=== PATIENT | female | born 1985 | race American Indian/Alaskan Native ===

== ENCOUNTER 2019-04-05 08:01 | Inpatient (IN) | payer MEDICAID ==
--- NOTE | 2019-04-05 08:51 | History and Physical Report ---
History of Present Illness Date of examination: 04/05/19 Chief complaint: Labor History of present illness: Pt is a 33yo BF EDC 04/16/19; EGA 38 3/7 weeks presents to L&D complaining of SROM clear fluid @ 0500 followed by RUC's q 3-4 mins. She received care at [facility] since 16 weeks and course has been unremarkable. records are available and GBS is Positive. Past History Past Medical History: no pertinent history Past Surgical History: no surgical history [employer] History: herpes Family/Genetic History: hypertension Social history: no significant social history, single - Obstetrical History Expected Date of Delivery: 04/16/19 Actual Gestation: 38 Week(s) 3 Day(s) : 4 Medications and Allergies Allergies Allergy/AdvReac Type Severity Reaction Status Date / Time seafood Allergy Anaphylaxis Uncoded 02/10/14 12:51 Home Medications Medication Instructions Recorded Confirmed Last Taken Type Cyclobenzaprine [Flexeril 10mg] 10 mg PO TID PRN #14 tablet 07/20/14 08/03/16 Unknown Rx Ibuprofen [Motrin 800 MG tab] 800 mg PO Q8H #30 tablet 07/20/14 08/03/16 Unknown Rx Acetaminophen [Tylenol] 500 mg PO Q6HR #15 tablet 07/14/16 08/03/16 Unknown Rx Vits96/Iron Fum/Folic 1 tab PO DAILY 08/03/16 08/03/16 07/30/16 19:00 History [ Tablet] 1 tab Ibuprofen [Motrin 600 MG tab] 600 mg PO Q6HR #30 tablet 08/05/16 Unknown Rx Vit-Fe Fumar-FA [ 1 each PO QDAY #30 tablet 08/05/16 Unknown Rx Vitamin] Active Meds: Active Medications Ephedrine Sulfate (Ephedrine Sulfate) 10 mg IV Q2M PRN PRN Reason: Hypotension Oxytocin/Sodium Chloride (Pitocin/Ns 20 Unit/1000ml Drip) 20 units in 1,000 mls @ 125 mls/hr IV DIRECT LORELEI Oxytocin/Sodium Chloride (Pitocin/Ns 30 Unit/500ml) 30 units in 500 mls @ 1 mls/hr IV TITR LORELEI; Protocol Oxytocin/Sodium Chloride (Pitocin/Ns 30 Unit/500ml) 30 units in 500 mls @ 4 mls/hr IV TITR LORELEI; Protocol Lactated Ringer's (Lactated Ringers) 1,000 mls @ 125 mls/hr IV DIRECT LORELEI Lidocaine (Xylocaine 2%) 20 ml INFILTRATI ONCE ONE Stop: 04/05/19 08:48 Mineral Oil (Mineral Oil) 30 ml PO QHS PRN PRN Reason: Constipation Terbutaline Sulfate (Brethine) 0.25 mg SUB-Q ONCE PRN PRN Reason: Hyperstimulation/Hypertonicity Terbutaline Sulfate (Brethine) 0.25 mg IVP ONCE PRN PRN Reason: Hyperstimulation/Hypertonicity Review of Systems All systems: negative - Vital Signs Vital signs: Vital Signs Pulse Pulse Ox 89 96 04/05/19 08:17 04/05/19 08:17 Temp Pulse Resp BP Pulse Ox 100 H 112/67 97 04/05/19 08:32 04/05/19 08:18 04/05/19 08:32 - Physical Exam Breasts: Positive: deferred Cardiovascular: Regular rate Lungs: Positive: Clear to auscultation Abdomen: Positive: normal appearance Genitourinary (Female): Positive: normal external genitalia Vagina: Positive: normal moisture Uterus: Positive: enlarged Extremities: Positive: normal - Obstetrical FHR: category 1 Uterine Contraction Monitor Mode: External Cervical Dilatation: 2 (per nurse) Cervical Effacement Percentage: 50 (per nurse) station: -3 Uterine Contraction Pattern: Regular Uterine Tone Measurement Phase: Contraction Uterine Contraction Intensity: Moderate Results Result Diagrams: 04/05/19 09:08 All other labs normal. Assessment and Plan - Patient Problems (1) 38 weeks gestation of Onset Date: 04/05/19 Current Visit: Yes Status: Acute Plan to address problem: A: IUP @ 38 3/7 weeks in labor +GBS P: Admit to L&D for expectant vaginal delivery IV Ampicillin
[2019-04-05] MEDS ORDERED: PITOCin/NS 30 UNIT/500ML 30 UNITS/500 ML BAG IV SCH ×2 (09:00→09:30)
[2019-04-05] MEDS ORDERED: PITOCin/NS 20 UNIT/1000ML DRIP 20 UNITS/1,000 ML BAG IV SCH ×2 (09:00→19:00)
[2019-04-05] MEDS: LACTATED RINGERS 1,000 ML IV SCH ×2 (09:00→17:12)
[2019-04-05] MEDS ORDERED: BRETHINE SUB-Q PRN (09:30)
[2019-04-05] MEDS ORDERED: STADOL IV PRN (09:30)
[2019-04-05] MEDS ORDERED: ZOFRAN IV PRN ×2 (09:30→18:11)
[2019-04-05] MEDS ORDERED: MINERAL OIL PO PRN (09:30)
[2019-04-05] MEDS ORDERED: BRETHINE IVP PRN (09:30)
[2019-04-05] MEDS ORDERED: NARCAN 0.4 MG/1 ML IV PRN (09:30)
[2019-04-05] MEDS ORDERED: SUBLIMAZE IV PRN (09:30)
[2019-04-05] MEDS ORDERED: XYLOCAINE 2% INFILTRATI NR (09:30)
[2019-04-05 09:46] LABS: Hematocrit 36.2 % (30.3-42.9); Hemoglobin 12.1 gm/dl (10.1-14.3); Mean Corpuscular HGB Conc 34 % (30-34); Mean Corpuscular Volume 85 fl (79-97); Platelet Count 202 K/mm3 (140-440); Red Blood Count 4.27 M/mm3 (3.65-5.03); Red Cell Distribution Width 15.5 % (13.2-15.2)
[2019-04-05 09:50] LABS: Bilirubin,Urine NEG (Negative); Blood,Urine NEG (Negative); Color,Urine Yellow (Yellow); Mucus,Urine FEW /HPF; Protein,Urine <15 mg/dL mg/dL (Negative); Urobilinogen,Urine < 2.0 mg/dL (<2.0); WBC,Urine < 1.0 /HPF (0.0-6.0)
[2019-04-05] MEDS ORDERED: AMPICILLIN/NS 2 GM/100 ML 2 GM/100 ML BAG IV ONE (10:00)
[2019-04-05] MEDS: AMPICILLIN/NS 1 GM/50 ML 1 GM/50 ML BAG IV SCH ×2 (14:05→17:45)
[2019-04-05] MEDS ORDERED: NARCAN 2 MG/2 ML IV PRN (17:42)
--- NOTE | 2019-04-05 17:45 | Anesthesia Consultation ---
Anesthesia Consult and Med Hx Date of service: 04/05/19 - Airway Anesthetic Teeth Evaluation: Good ROM Head & Neck: Adequate Mental/Hyoid Distance: Adequate Mallampati Class: Class II Intubation Access Assessment: Probably Good - Pulmonary Exam CTA: Yes - Cardiac Exam Cardiac Exam: RRR - Pre-Operative Health Status ASA Pre-Surgery Classification: ASA2 Proposed Anesthetic Plan: Epidural - Pulmonary Hx Smoking: No Hx Asthma: Yes (LAST EPISODE IN 2014) Hx Respiratory Symptoms: No SOB: No COPD: No Home Oxygen Therapy: No Hx Pneumonia: No Hx Sleep Apnea: No - Cardiovascular System Hx Hypertension: No Hx Coronary Artery Disease: No Hx Heart Attack/AMI: No Hx Angina: No Hx Percutaneous Transluminal Coronary Angioplasty (PTCA): No Hx Cardia Arrhythmia: No Hx Pacemaker: No Hx Internal Defibrillator: No Hx Valvular Heart Disease: No Hx Heart Murmur: No Hx Peripheral Vascular Disease: No - Central Nervous System Hx Neuromuscular Disorder: No Hx Seizures: No CVA: No Hx Back Pain: No Hx Psychiatric Problems: No - Gastrointestinal Hx Ulcer: No Hx Gastroesophageal Reflux Disease: No - Endocrine Hx Renal Disease: No Hx End Stage Renal Disease: No Hx Cirrhosis: No Hx Liver Disease: No Hx Insulin Dependent Diabetes: No Hx Non-Insulin Dependent Diabetes: No Hx Thyroid Disease: No Hx Hypothyroidism: No Hx Hyperthyroidism: No - Hematic Hx Anemia: Yes Hx Sickle Cell Disease: No - Other Systems Hx Alcohol Use: No Hx Substance Use: No Hx Cancer: No Hx Obesity: Yes (BMI 36.3)
[2019-04-05] MEDS ORDERED: fentaNYL-BUPIV 2 MCG/ML-0.125% 200 MCG/100 ML BAG EPIDURAL SCH (18:00)
--- NOTE | 2019-04-05 18:07 | Procedure Note ---
OB Delivery Note - Delivery Date of Delivery: 04/05/19 Surgeon: KIMBERLY NEW Estimated blood loss: 100cc - Vaginal Delivery presentation: vertex Delivery position: OA Intrapartum events: none Delivery induction: none Delivery augmentation: rupture of membranes, pitocin Delivery monitor: external FHT, external uterine Route of delivery: Delivery placenta: spontaneous Delivery cord: nuchal cord (x1), 3 umbilical vessels Episiotomy: none Delivery laceration: 1st degree Delivery repair: vicryl Anesthesia: local Delivery comments: delivered OA and placed on Mom's chest for [id number] bonding and delayed cord clamping, cut by Dad - A at 1 minute: 8 at 5 minutes: 9 Infant Gender: Female (3348gms)
[2019-04-05] MEDS ORDERED: PHENERGAN PR PRN (18:11)
[2019-04-05] MEDS ORDERED: PHENERGAN PO PRN (18:11)
[2019-04-05] MEDS ORDERED: TUCKS PAD TP PRN (18:11)
[2019-04-05] MEDS ORDERED: DULCOLAX PR PRN (18:11)
[2019-04-05] MEDS ORDERED: MILK OF MAGNESIA PO PRN (18:11)
[2019-04-05] MEDS ORDERED: TYLENOL PO PRN (18:11)
[2019-04-05] MEDS ORDERED: NORCO 5/325 PO PRN (18:11)
[2019-04-05] MEDS ORDERED: LANSINOH TP PRN (18:11)
[2019-04-05] MEDS ORDERED: BENADRYL PO PRN (18:11)
[2019-04-05] MEDS ORDERED: SODIUM CHLORIDE FLUSH SYRINGE 10 ML IV NR (19:00)
[2019-04-05] MEDS: COLACE PO SCH (21:23)
[2019-04-05] MEDS: IBUPROFEN PO SCH (21:23)
[2019-04-05] MEDS: FEOSOL PO SCH (21:23)
[2019-04-06] MEDS ORDERED: DERMOPLAST TP PRN (06:00)
[2019-04-06 06:17] LABS: Hematocrit 34.6 % (30.3-42.9); Hemoglobin 11.5 gm/dl (10.1-14.3)
[2019-04-06] MEDS: IBUPROFEN PO SCH ×4 (07:00→22:06)
[2019-04-06] MEDS: FEOSOL PO SCH ×2 (09:19→22:06)
[2019-04-06] MEDS: COLACE PO SCH ×2 (09:19→22:06)
[2019-04-06] MEDS: PRENATAL VITAMIN PO SCH (09:19)
--- NOTE | 2019-04-06 10:36 | Progress Note ---
Assessment and Plan - Patient Problems (1) 38 weeks gestation of Onset Date: 04/05/19 Current Visit: Yes Status: Resolved (2) (normal spontaneous vaginal delivery) Onset Date: 04/06/19 Current Visit: Yes Status: Resolved Plan to address problem: A: S/P - PPD #1 Doing well P: May go home tomorrow. Subjective - Subjective Date of service: 04/06/19 Principal diagnosis: s/p - PPD #1 Interval history: Pt is feeling well without complaints. Bleeding improved. Patient reports: appetite normal, voiding normally, pain well controlled, flatus, ambulating normally, no dizzy ambulation, no nauseated : doing well, nursing well Objective - Vital Signs Latest vital signs: Vital Signs Temp Pulse Resp BP BP Pulse Ox 04/06/19 07:08 98.2 F 85 18 99/60 04/06/19 05:14 98.7 F 72 18 100/63 96 04/06/19 01:40 98.1 F 95 H 18 113/61 97 04/05/19 20:25 85 111/54 96 04/05/19 19:21 85 122/58 04/05/19 19:07 91 H 125/65 04/05/19 18:51 93 H 107/56 04/05/19 18:37 88 107/59 04/05/19 18:30 97.4 F L 18 04/05/19 18:14 99 H 123/51 04/05/19 18:00 97.4 F L 18 04/05/19 17:58 96 H 105/69 04/05/19 17:28 80 127/83 04/05/19 16:58 62 111/64 04/05/19 16:28 82 108/66 04/05/19 16:00 97.4 F L 18 04/05/19 15:59 93 H 113/62 04/05/19 15:30 68 118/78 04/05/19 14:58 77 112/67 04/05/19 14:27 88 114/67 04/05/19 14:00 98.0 F 18 04/05/19 13:28 71 102/64 04/05/19 12:00 98.0 F 18 Intake and Output 04/05/19 04/06/19 04/06/19 22:59 06:59 14:59 Intake Total 1000 600 480 Output Total 1600 700 Balance -600 -100 480 Intake: IV 1000 Lactated Ringers 1,000 ml 1000 @ 125 mls/hr IV DIRECT [facility] Rx#:[id number] Oral 480 Intake, Free Water 600 Output: Urine 1600 700 Void 1600 700 Other: Total, Intake Amount 480 Total, Output Amount 900 700 # Voids Void 2 Estimated Blood Loss 100 - Exam Breasts: Present: deferred Abdomen: Present: normal appearance, soft Uterus: Present: normal, firm, fundal height below umbilicus Extremities: Present: normal - Labs Labs: Laboratory Tests 04/05/19 04/05/19 04/05/19 09:08 09:08 09:08 WBC 10.2 RBC 4.27 Hgb 12.1 Hct 36.2 MCV 85 MCH 28 MCHC 34 RDW 15.5 H Plt Count 202 Urine Color Yellow Urine Turbidity Clear Urine pH 6.0 Ur Specific [place] 1.019 Urine Protein <15 mg/dl Urine Glucose (UA) Neg Urine Ketones Neg Urine Blood Neg Urine Nitrite Neg Urine Bilirubin Neg Urine Urobilinogen < 2.0 Ur Leukocyte Esterase Neg Urine WBC (Auto) < 1.0 Urine RBC (Auto) 2.0 U Epithel Cells (Auto) < 1.0 Urine Mucus Few RPR Nonreactive Hep Bs Antigen Blood Type Antibody Screen 04/05/19 04/05/19 04/06/19 09:08 Unknown 06:00 WBC RBC Hgb 11.5 Hct 34.6 MCV MCH MCHC RDW Plt Count Urine Color Urine Turbidity Urine pH Ur Specific [place] Urine Protein Urine Glucose (UA) Urine Ketones Urine Blood Urine Nitrite Urine Bilirubin Urine Urobilinogen Ur Leukocyte Esterase Urine WBC (Auto) Urine RBC (Auto) U Epithel Cells (Auto) Urine Mucus RPR Hep Bs Antigen Non-reactive Blood Type O POSITIVE Antibody Screen Negative
[2019-04-06] MEDS ORDERED: BOOSTRIX IM ONE (18:11)
[2019-04-06] MEDS ORDERED: M-M-R II VACCINE SUB-Q ONE (18:11)
[2019-04-07] MEDS: IBUPROFEN PO SCH ×2 (01:00→12:03)
--- NOTE | 2019-04-07 10:11 | Discharge Summary ---
Providers - Providers Date of Admission: 04/05/19 08:47 Date of discharge: 04/07/19 Attending physician: KIMBERLY NEW Primary care physician: KIMBERLY NEW Hospitalization Reason for admission: active labor, rupture of membranes, IUP at term Delivery: Episiotomy: none Laceration: 1st degree Other procedures: none complications: none Discharge diagnosis: IUP at term delivered baby: female Hospital course: Unremarkable. Condition at discharge: Good Disposition: DC-01 TO HOME OR SELFCARE - Discharge Diagnoses (1) 38 weeks gestation of Status: Resolved (2) (normal spontaneous vaginal delivery) Status: Resolved Plan - Discharge Medications Prescriptions: Ferrous Sulfate [Feosol 325 MG tab] 325 mg PO QDAY #30 tablet Ibuprofen [Motrin 600 MG tab] 600 mg PO Q6H #30 tablet Vit-Fe Fumar-FA [ Vitamin] 1 each PO QDAY #30 tablet - Provider Discharge Summary Activity: routine, no sex for 6 weeks, no heavy lifting 4 weeks, no strenuous exercise Diet: routine Instructions: routine Additional instructions: [] Smoking cessation referral if applicable(refer to patient education folder for contact #) [] Refer to [facility]'s [facility] Booklet Call your doctor immediately for: * Fever > 100.5 * Heavy vaginal bleeding ( >1 pad per hour) * Severe persistent headache * Shortness of breath * Reddened, hot, painful area to leg or breast * Drainage or odor from incision. * Keep incision clean and dry at all times and follow doctor's instructions regarding bathing/showering - Follow up plan Follow up: KIMBERLY NEW MD [Primary Care Provider] - 6 Weeks KENZIE REID CNM [Advanced Practice Nurse] - 6 Weeks
[2019-04-07] MEDS: FEOSOL PO SCH (12:03)
[2019-04-07] MEDS: PRENATAL VITAMIN PO SCH (12:03)
[2019-04-07 12:25] VITALS: BP 101/62
== END 2019-04-07 13:30 | disposition home or self-care (01) | DRG 775 ==
LOC: TRG 08:01 → LD 08:03 → TRG 09:57 → LD 09:57 → TRG 18:11 → OB 20:17
PROVIDERS: ADMIT Obstetrics & Gynecology; ATTEND Obstetrics & Gynecology
PROC: 10E0XZZ Delivery of Products of Conception, External Approach (ICD-10-PCS; principal; 2019-04-05)
PROC: 0HQ9XZZ Repair Perineum Skin, External Approach (ICD-10-PCS; 2019-04-05)
PROC: 3E0234Z Introduction of Serum, Toxoid and Vaccine into Muscle, Percutaneous Approach (ICD-10-PCS; 2019-04-06)
DX: O69.81X0 Labor and delivery complicated by cord around neck, without compression, not applicable or unspecified (principal); O99.52 Diseases of the respiratory system complicating childbirth; J45.909 Unspecified asthma, uncomplicated; O99.824 Streptococcus B carrier state complicating childbirth; O99.214 Obesity complicating childbirth; E66.9 Obesity, unspecified; O70.0 First degree perineal laceration during delivery; Z3A.38 38 weeks gestation of pregnancy; Z37.0 Single live birth; Z23 Encounter for immunization; Z82.49 Family history of ischemic heart disease and other diseases of the circulatory system; Z91.013 Allergy to seafood; Z79.899 Other long term (current) drug therapy
CPT/HCPCS: 36415; 81001; 85014; 85018; 85027; 86592; 86706; 86850; 86900; 86901; G0378; A6250; J0290; J0595; J2590; J7120

== ENCOUNTER 2019-07-13 03:12 | Emergency (ER) | payer MEDICAID ==
[2019-07-13 03:20] VITALS: BP 117/72
--- NOTE | 2019-07-13 05:20 | Emergency Department Report ---
ED ENT HPI - General Chief complaint: Earache Stated complaint: SORE THROATM, EAR ACHE Time Seen by Provider: 07/13/19 05:03 Source: patient Mode of arrival: Ambulatory Limitations: No Limitations - History of Present Illness Initial comments: This is a 33-year-old female presents to ED complaining of right ear pain and right-sided sore throat for the past 2 days. Patient states that the symptoms up until month ago but resolved and now returned yesterday. Patient also states that her 3-month-old and a 2-year-old daughters they intubate sick for the past couple of days. She denies fevers/chills/nausea vomiting or abdominal pain chest pain or shortness of breath. Patient states she's been taking Tylenol which has been worse give her some relief MD complaint: sore throat, ear pain Location: R ear, throat (right) Severity: moderate Severity scale (0 -10): 6 Quality: aching Consistency: intermittent Improves with: none Worsens with: none - Related Data Home Medications Medication Instructions Recorded Confirmed Last Taken valACYclovir [Valtrex] 500 mg PO DAILY 04/05/19 04/05/19 04/04/19 21:00 Previous Rx's Medication Instructions Recorded Last Taken Type Vit-Fe Fumar-FA [ 1 each PO QDAY #30 tablet 08/05/16 04/04/19 21:00 Rx Vitamin] Ferrous Sulfate [Feosol 325 MG tab] 325 mg PO QDAY #30 tablet 04/07/19 Unknown Rx Ibuprofen [Motrin 600 MG tab] 600 mg PO Q6H #30 tablet 04/07/19 Unknown Rx Vit-Fe Fumar-FA [ 1 each PO QDAY #30 tablet 04/07/19 Unknown Rx Vitamin] Amoxicillin/Potassium Clav 1 each PO BID #20 tablet 07/13/19 Unknown Rx [Augmentin 875-125 Tablet] Ibuprofen [Motrin] 800 mg PO Q8HR #20 tablet 07/13/19 Unknown Rx Pseudoephedrine ER [Sudafed 12 Hr] 120 mg PO BID #15 tablet.er 07/13/19 Unknown Rx Allergies Allergy/AdvReac Type Severity Reaction Status Date / Time seafood Allergy Anaphylaxis Uncoded 02/10/14 12:51 ED Dental HPI - General Chief complaint: Earache Stated complaint: SORE THROATM, EAR ACHE Time Seen by Provider: 07/13/19 05:03 Source: patient Mode of arrival: Ambulatory Limitations: No Limitations - Related Data Home Medications Medication Instructions Recorded Confirmed Last Taken valACYclovir [Valtrex] 500 mg PO DAILY 04/05/19 04/05/19 04/04/19 21:00 Previous Rx's Medication Instructions Recorded Last Taken Type Vit-Fe Fumar-FA [ 1 each PO QDAY #30 tablet 08/05/16 04/04/19 21:00 Rx Vitamin] Ferrous Sulfate [Feosol 325 MG tab] 325 mg PO QDAY #30 tablet 04/07/19 Unknown Rx Ibuprofen [Motrin 600 MG tab] 600 mg PO Q6H #30 tablet 04/07/19 Unknown Rx Vit-Fe Fumar-FA [ 1 each PO QDAY #30 tablet 04/07/19 Unknown Rx Vitamin] Amoxicillin/Potassium Clav 1 each PO BID #20 tablet 07/13/19 Unknown Rx [Augmentin 875-125 Tablet] Ibuprofen [Motrin] 800 mg PO Q8HR #20 tablet 07/13/19 Unknown Rx Pseudoephedrine ER [Sudafed 12 Hr] 120 mg PO BID #15 tablet.er 07/13/19 Unknown Rx Allergies Allergy/AdvReac Type Severity Reaction Status Date / Time seafood Allergy Anaphylaxis Uncoded 02/10/14 12:51 ED Review of Systems ROS: Stated complaint: SORE THROATM, EAR ACHE Other details as noted in HPI Comment: All other systems reviewed and negative ED Past Medical Hx - Past Medical History Previous Medical History?: Yes Hx Hypertension: No Hx Heart Attack/AMI: No Hx Congestive Heart Failure: No Hx Diabetes: No Hx Deep Vein Thrombosis: No Hx Liver Disease: No Hx Renal Disease: No Hx Sickle Cell Disease: No Hx Seizures: No Hx Asthma: Yes (LAST EPISODE IN 2014) Hx COPD: No Hx HIV: No - Surgical History Past Surgical History?: No Hx Pacemaker: No Hx Internal Defibrillator: No - Social History Smoking Status: Never Smoker Substance Use Type: None - Medications Home Medications: Home Medications Medication Instructions Recorded Confirmed Last Taken Type Vit-Fe Fumar-FA [ 1 each PO QDAY #30 tablet 08/05/16 04/05/19 04/04/19 21:00 Rx Vitamin] valACYclovir [Valtrex] 500 mg PO DAILY 04/05/19 04/05/19 04/04/19 21:00 History Ferrous Sulfate [Feosol 325 MG tab] 325 mg PO QDAY #30 tablet 04/07/19 Unknown Rx Ibuprofen [Motrin 600 MG tab] 600 mg PO Q6H #30 tablet 04/07/19 Unknown Rx Vit-Fe Fumar-FA [ 1 each PO QDAY #30 tablet 04/07/19 Unknown Rx Vitamin] Amoxicillin/Potassium Clav 1 each PO BID #20 tablet 07/13/19 Unknown Rx [Augmentin 875-125 Tablet] Ibuprofen [Motrin] 800 mg PO Q8HR #20 tablet 07/13/19 Unknown Rx Pseudoephedrine ER [Sudafed 12 Hr] 120 mg PO BID #15 tablet.er 07/13/19 Unknown Rx ED Physical Exam - General Limitations: No Limitations General appearance: alert, in no apparent distress - Head Head exam: Present: atraumatic, normocephalic - Eye Eye exam: Present: normal appearance - ENT ENT exam: Present: mucous membranes moist, other (maxillary sinus tenderness bilaterally) - Expanded ENT Exam Expanded Ear exam: Present: normal external inspection Mouth exam: Present: normal external inspection Teeth exam: Present: normal inspection Throat exam: Positive: normal inspection, tonsillar erythema. Negative: tonsillomegaly, tonsillar exudate, R peritonsillar mass, L peritonsillar mass - Neck Neck exam: Present: normal inspection, full ROM. Absent: tenderness - Respiratory Respiratory exam: Present: normal lung sounds bilaterally. Absent: respiratory distress - Cardiovascular Cardiovascular Exam: Present: regular rate, normal rhythm. Absent: systolic murmur, diastolic murmur, rubs, gallop - GI/Abdominal GI/Abdominal exam: Present: soft, normal bowel sounds - Extremities Exam Extremities exam: Present: normal inspection - Back Exam Back exam: Present: normal inspection - Neurological Exam Neurological exam: Present: alert, oriented X3 - Psychiatric Psychiatric exam: Present: normal affect, normal mood - Skin Skin exam: Present: warm, dry, intact, normal color. Absent: rash ED Course Vital Signs 07/13/19 03:17 Temperature 97.7 F Pulse Rate 63 Respiratory 14 Rate Blood Pressure 117/72 O2 Sat by Pulse 97 Oximetry ED Medical Decision Making - Medical Decision Making 33-year-old female presents with acute sinusitis. Discussed the patient to follow up with her primary care physician. Patient is given antibiotics and follow-up ENT Vital signs are normal patient is in no acute distress no neurological symptoms. Critical care attestation.: If time is entered above; I have spent that time in minutes in the direct care of this critically ill patient, excluding procedure time. ED Disposition Clinical Impression: Acute sinusitis Disposition: DC-01 TO HOME OR SELFCARE Is pt being admited?: No Does the pt Need Aspirin: No Condition: Stable Instructions: Sinusitis (ED) Additional Instructions: Make sure to follow up with the primary care physician as discussed. Take all your medications as you've been prescribed. If you have any worsening symptoms or develop new symptoms please return to ED immediately. Prescriptions: Amoxicillin/Potassium Clav [Augmentin 875-125 Tablet] 1 each PO BID #20 tablet Ibuprofen [Motrin] 800 mg PO Q8HR #20 tablet Pseudoephedrine ER [Sudafed 12 Hr] 120 mg PO BID #15 tablet.er Referrals: PRIMARY CARE, [Primary Care Provider] - 3-5 Days [facility] [Outside] - 3-5 Days [facility] [Provider Group] - 3-5 Days Forms: Work/School Release Form(ED) Time of Disposition: 05:24
== END 2019-07-13 05:47 | disposition home or self-care (01) ==
LOC: ED 03:12
DX: J01.90 Acute sinusitis, unspecified (principal); J45.909 Unspecified asthma, uncomplicated
CPT/HCPCS: 99282

== ENCOUNTER 2021-12-13 18:56 | Emergency (ER) | payer MEDICAID ==
[2021-12-13] MEDS ORDERED: IBUPROFEN 600 MG TAB PO ONE (22:02)
[2021-12-13] MEDS ORDERED: ACETAMINOPHEN 500 MG TAB PO ONE (22:02)
[2021-12-13] MEDS ORDERED: TETANUS,DIPH,PERTUSS(ACELL) VACCINE 0.5 ML SYRINGE IM ONE (22:02)
[2021-12-13] MEDS ORDERED: LIDOCAINE (1%) 10 MG/1 ML VIAL 20 ML MDV INFILTRATI ONE (22:02)
--- NOTE | 2021-12-14 01:22 | Emergency Department Report ---
- General Chief Complaint: Wound/Laceration Stated Complaint: CUT HAND Source: patient Mode of arrival: Ambulatory Limitations: No Limitations - History of Present Illness Initial Comments: Patient is a 36-year-old -[place] female with no past medical history presents to the ED with complaint of acute onset persistent left palm laceration after she accidentally cut her left palm with a knife when cutting some potatoes at home about 6 hours ago. Patient states that the pain and the bleeding have been persistent and constant despite dressing. Patient states that she is not up-to-date with her tetanus vaccinations. Patient denies numbness and tingling or weakness of left hand, nausea and vomiting, lightheadedness, dizziness, cough, shortness of breath, fall or heavy lifting. -: Sudden, hour(s) (6) Extremity Location: Left: Hand (Left palm laceration) Place: home Context: accidental, sharp object use Associated Symptoms: pain. denies: loss of feeling/numbness, suspect foreign body present, unable to move injured part, weakness followed by dizziness, nausea/vomiting, fever - Related Data Home Medications Medication Instructions Recorded Confirmed Last Taken valACYclovir [Valtrex] 500 mg PO DAILY 04/05/19 04/05/19 04/04/19 21:00 Previous Rx's Medication Instructions Recorded Last Taken Type Vit-Fe Fumar-FA [ 1 each PO QDAY #30 tablet 08/05/16 04/04/19 21:00 Rx Vitamin] Ferrous Sulfate [Feosol 325 MG tab] 325 mg PO QDAY #30 tablet 04/07/19 Unknown Rx Ibuprofen [Motrin 600 MG tab] 600 mg PO Q6H #30 tablet 04/07/19 Unknown Rx Vit-Fe Fumar-FA [ 1 each PO QDAY #30 tablet 04/07/19 Unknown Rx Vitamin] Amoxicillin/Potassium Clav 1 each PO BID #20 tablet 07/13/19 Unknown Rx [Augmentin 875-125 Tablet] Pseudoephedrine ER [Sudafed 12 Hr] 120 mg PO BID #15 tablet.er 07/13/19 Unknown Rx Ibuprofen [Motrin 800 MG tab] 800 mg PO Q8HR #30 tablet 12/14/21 Unknown Rx cephALEXin [Keflex] 500 mg PO Q8HR #30 cap 12/14/21 Unknown Rx Allergies Allergy/AdvReac Type Severity Reaction Status Date / Time seafood Allergy Anaphylaxis Uncoded 02/10/14 12:51 ED Review of Systems ROS: Stated complaint: CUT HAND Other details as noted in HPI Constitutional: denies: chills, fever Eyes: denies: eye pain, eye discharge, vision change ENT: denies: ear pain, throat pain Respiratory: denies: cough, shortness of breath, wheezing Cardiovascular: denies: chest pain, palpitations Endocrine: no symptoms reported Gastrointestinal: denies: abdominal pain, nausea, vomiting, diarrhea Genitourinary: denies: urgency, dysuria, discharge Musculoskeletal: arthralgia (Left hand pain due to a left palm laceration). denies: back pain, joint swelling Skin: other (Left palm laceration wound). denies: rash, lesions Neurological: denies: headache, weakness, paresthesias Psychiatric: denies: anxiety, depression Hematological/Lymphatic: denies: easy bleeding, easy bruising ED Past Medical Hx - Past Medical History Hx Hypertension: No Hx Heart Attack/AMI: No Hx Congestive Heart Failure: No Hx Diabetes: No Hx Deep Vein Thrombosis: No Hx Liver Disease: No Hx Renal Disease: No Hx Sickle Cell Disease: No Hx Seizures: No Hx Asthma: Yes (LAST EPISODE IN 2014) Hx COPD: No Hx HIV: No - Surgical History Hx Pacemaker: No Hx Internal Defibrillator: No - Social History Smoking Status: Never Smoker Substance Use Type: None - Medications Home Medications: Home Medications Medication Instructions Recorded Confirmed Last Taken Type Vit-Fe Fumar-FA [ 1 each PO QDAY #30 tablet 08/05/16 04/05/19 04/04/19 21:00 Rx Vitamin] valACYclovir [Valtrex] 500 mg PO DAILY 04/05/19 04/05/19 04/04/19 21:00 History Ferrous Sulfate [Feosol 325 MG tab] 325 mg PO QDAY #30 tablet 04/07/19 Unknown Rx Ibuprofen [Motrin 600 MG tab] 600 mg PO Q6H #30 tablet 04/07/19 Unknown Rx Vit-Fe Fumar-FA [ 1 each PO QDAY #30 tablet 04/07/19 Unknown Rx Vitamin] Amoxicillin/Potassium Clav 1 each PO BID #20 tablet 07/13/19 Unknown Rx [Augmentin 875-125 Tablet] Pseudoephedrine ER [Sudafed 12 Hr] 120 mg PO BID #15 tablet.er 07/13/19 Unknown Rx Ibuprofen [Motrin 800 MG tab] 800 mg PO Q8HR #30 tablet 12/14/21 Unknown Rx cephALEXin [Keflex] 500 mg PO Q8HR #30 cap 12/14/21 Unknown Rx ED Physical Exam - General Limitations: No Limitations General appearance: alert, in no apparent distress - Head Head exam: Present: atraumatic, normocephalic, normal inspection - Eye Eye exam: Present: normal appearance, PERRL, EOMI Pupils: Present: normal accommodation - ENT ENT exam: Present: normal exam, normal orophraynx, mucous membranes moist, TM's normal bilaterally, normal external ear exam - Neck Neck exam: Present: normal inspection, full ROM - Respiratory Respiratory exam: Present: normal lung sounds bilaterally. Absent: respiratory distress, wheezes, rales, stridor, chest wall tenderness, accessory muscle use, decreased breath sounds, prolonged expiratory - Cardiovascular Cardiovascular Exam: Present: regular rate, normal rhythm, normal heart sounds. Absent: systolic murmur, diastolic murmur, rubs, gallop - GI/Abdominal GI/Abdominal exam: Present: soft, normal bowel sounds. Absent: tenderness, guarding, rebound, hyperactive bowel sounds, hypoactive bowel sounds, mass - Extremities Exam Extremities exam: Present: normal inspection, full ROM, tenderness (Palpable left palm tenderness due to a 5 cm laceration wound ), normal capillary refill. Absent: calf tenderness - Back Exam Back exam: Present: normal inspection, full ROM, other. Absent: tenderness, CVA tenderness (R), CVA tenderness (L), muscle spasm, paraspinal tenderness, vertebral tenderness - Neurological Exam Neurological exam: Present: alert, oriented X3, CN II-XII intact, normal gait, reflexes normal - Psychiatric Psychiatric exam: Present: normal affect, normal mood - Skin Skin exam: Present: warm, dry, intact, normal color, other (Bleeding left palm 5 cm laceration wound). Absent: rash ED Course Vital Signs 12/13/21 19:26 Temperature 98.3 F Pulse Rate 67 Respiratory 18 Rate Blood Pressure 145/91 O2 Sat by Pulse 100 Oximetry - Laceration /Wound Repair Left Palm Hand Wound Location: upper extremity (Left palm laceration) Wound Length (cm): 5 Wound's Depth, Shape: linear, flap Wound Explored: contaminated Irrigated w/ Saline (ccs): 300 Betadine Prep?: Yes Anesthesia: 1% Lidocaine Volume Anesthetic (ccs): 8 Wound Debrided: extensive Wound Repaired With: sutures Suture Size/Type: 4:0, proline Number of Sutures: 11 Layer Closure?: No Sterile Dressing Applied?: Yes Progress: The wound was cleaned extensively with normal saline and Betadine solution, lidocaine 1% solution was infiltrated around the wound for local anesthesia. When anesthesia was fully achieved, the wound was sutured per protocol using Prolene 4 sutures for a total of 11 sutures. The wound was then cleaned with normal saline and dressed appropriately with 4 x 4 gauze and Kerlix. Patient tolerated procedure well. Patient was thereafter discharged home on pain medication and prophylactic antibiotics and advised to follow-up with her primary care physician in 7 to 10 days for reevaluation. Patient was also advised return to the ED immediately if symptoms get worse. ED Medical Decision Making - Medical Decision Making This is a 36-year-old -[place] female with no past medical history presents to the ED with complaint of acute onset persistent left palm laceration after she accidentally cut her left palm with a knife when cutting some potatoes at home about 6 hours ago. Patient states that the pain and the bleeding have been persistent and constant despite dressing. Patient states that she is not up-to-date with her tetanus vaccinations. In the ED, patient is alert and oriented x3 and is not in any distress. Patient was treated for pain in the ED. Patient also received booster tetanus vaccinations.The wound was cleaned extensively with normal saline and Betadine solution, lidocaine 1% solution was infiltrated around the wound for local anesthesia. When anesthesia was fully achieved, the wound was sutured per protocol using Prolene 4 sutures for a total of 11 sutures. The wound was then cleaned with normal saline and dressed appropriately with 4 x 4 gauze and Kerlix. Patient tolerated procedure well. Patient was thereafter discharged home on pain medication and prophylactic antibiotics and advised to follow-up with her primary care physician in 7 to 10 days for reevaluation. Patient was also advised return to the ED immediately if symptoms get worse. - Differential Diagnosis palm laceration; palm puncture wound Critical care attestation.: If time is entered above; I have spent that time in minutes in the direct care of this critically ill patient, excluding procedure time. ED Disposition Clinical Impression: Laceration of left palm without complication Qualifiers: Encounter type: initial encounter Qualified Code(s): S61.412A - Laceration without foreign body of left hand, initial encounter Disposition: HOME / SELF CARE / HOMELESS Is pt being admited?: No Does the pt Need Aspirin: No Condition: Stable Instructions: Sutured Wound Care, [id number], Sutures, Reynolds, or Adhesive Wound Closure, [id number], Laceration Care, Adult, [id number] Additional Instructions: Take medication with food, drink plenty of fluids, follow-up with your primary care physician in 7 to 10 days for reevaluation. Return to the ED immediately if symptoms get worse. Otherwise return to the ED in 12 to 14 days for suture removal. Prescriptions: cephALEXin [Keflex] 500 mg PO Q8HR #30 cap Ibuprofen [Motrin 800 MG tab] 800 mg PO Q8HR #30 tablet Referrals: ANGELICA GRIMALDO MD [Primary Care Provider] - 3-5 Days Forms: Work/School Release Form(ED) Time of Disposition: 01:26 Print Language: BULGARIAN
[2021-12-14 01:36] VITALS: BP 145/90
== END 2021-12-14 01:35 | disposition home or self-care (01) ==
LOC: ED 18:56
DX: S61.412A Laceration without foreign body of left hand, initial encounter (principal); J45.909 Unspecified asthma, uncomplicated; Z79.899 Other long term (current) drug therapy; Z91.013 Allergy to seafood; W26.0XXA Contact with knife, initial encounter; Y93.89 Activity, other specified; Y92.89 Other specified places as the place of occurrence of the external cause; Y99.8 Other external cause status
CPT/HCPCS: 90471; 90715; 96372; 99282